=== PATIENT | female | born 1975 | race Caucasian/White ===

== ENCOUNTER 2016-05-08 13:52 | Day surgery (SDC) | payer OTHER ==
[2016-05-06 14:44] VITALS: BMI 22.3
[2016-05-08] MEDS ORDERED: MIDAZOLAM HCL 2 MG/2 ML SINGLE DOSE VIAL ONE (15:34)
[2016-05-08] MEDS ORDERED: ONDANSETRON 4 MG/2 ML VIAL IVPUSH PRN (15:53)
[2016-05-08] MEDS ORDERED: oxyCODONE HCL 5 MG TABLET PO PRN ×2 (15:53)
[2016-05-08] MEDS ORDERED: PROPOFOL 20 ML ONE ×2 (15:56)
[2016-05-08] MEDS ORDERED: LIDOCAINE HCL/PF 2% SDV 5ML VIAL ONE (16:31)
[2016-05-08] MEDS ORDERED: ONDANSETRON 4 MG/2 ML VIAL ONE (17:34)
[2016-05-08 19:03] VITALS: BP 116/72; PULSE 74; TEMP 98
--- NOTE | 2016-05-08 20:48 | OP ---
DATE OF OPERATION: 05/08/2016 PREOPERATIVE DIAGNOSES: 1. Right hand mass adjacent to basal joint of thumb. 2. Early arthrosis of basal joint. POSTOPERATIVE DIAGNOSES: 1. Right hand mass adjacent to basal joint of thumb. 2. Early arthrosis of basal joint. OPERATIVE PROCEDURE: 1. Excision of right hand mass. 2. Right basal joint of thumb debridement. SURGEON: Nikolas Poole MD SUGAR SAMPLER: GRAEME Trejo ANESTHESIA: General. COMPLICATIONS: None. ESTIMATED BLOOD LOSS: Minimal. INDICATIONS FOR PROCEDURE: The patient is a 41-year-old female with the above findings, indicative for operative treatment. Risks, benefits, alternatives were discussed with the patient at length. Proper informed consent was obtained. PROCEDURE: After proper identification of the patient and correct operative site, the patient was brought to the operating room and placed supine on the operating table. All prominences well-padded. General anesthesia was provided by the anesthesiologist and was adequate for the procedure. Intravenous antibiotics were given. A timeout procedure was performed. Right upper extremity was prepped and draped in the usual sterile fashion. Well-padded tourniquet was placed under sterile prep. Esmarch bandage was used to exsanguinate the right upper extremity. Tourniquet was inflated to 250 mmHg. A curvilinear incision was made over the radial base of the thumb. This is a Villegas approach to the basilar joint. Incision was taken sharply through the skin with blunt and sharp dissection of the subcutaneous tissues. Neurovascular structures were carefully protected. Thenar muscles were elevated off of the basilar joint capsule and right at this area, a mass that appeared to be a giant cell tumor of the tendon sheath was visualized and found to be quite large and invading or emanating from the basilar joint. This was excised in whole and sent for pathologic evaluation. The basal joint itself was irrigated and debrided of any further tissue. Wound was irrigated with copious amounts of normal saline and repaired with a 4-0 Vicryl and 4-0 Monocryl suture. Steri-Strips and sterile dressings were placed. Patient was reversed from anesthesia and brought to the recovery room in stable condition. She tolerated the procedure well. Tree JONES/[id number]
--- NOTE | 2016-05-10 11:33 | PATH ---
Surgical Pathology Report Patient Name: GORAN ELY [facility]. Rec. #: [id number] /Age/Gender: 1975 (Age: 41) / F Account: [id number] Location: [facility] AMBUL[facility]ORY Taken: 05/08/2016 Received: 05/08/2016 Reported: 05/10/2016 Physicians: Nikolas Poole M.D. 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 Electronically Signed Gerry Barrios M.D. Gross Description Received in formalin, labeled "right hand mass," is a 3.3 x 2.0 x 0.8 cm hogue, irregular, firm mass. Sectioning reveals homogeneous hogue fibrous tissue. [employer] sections are submitted in one cassette. 05/09/201605/09/2016
== END 2016-05-08 19:14 | disposition home or self-care (01) ==
LOC: FASU 13:52
PROVIDERS: ATTEND Orthopaedic Surgery Hand Surgery
PROC: 0RBU0ZZ Excision of Right Metacarpophalangeal Joint, Open Approach (ICD-10-PCS; principal; 2016-05-08 15:30)
DX: D21.11 Benign neoplasm of connective and other soft tissue of right upper limb, including shoulder (principal); M18.11 Unilateral primary osteoarthritis of first carpometacarpal joint, right hand; M65.841 Other synovitis and tenosynovitis, right hand
CPT/HCPCS: 84703; 88305-TC; 94760